=== PATIENT | female | born 1985 | race Caucasian/White ===

== ENCOUNTER → 2020-04-11 15:26 | Outpatient (BNVA) | payer OTHER, SELFPAY | PROVIDERS: Family Provider Family Medicine; PCP Family Medicine; Visit Provider Social Worker Clinical | DX: F32.2 Major depressive disorder, single episode, severe without psychotic features (principal); F41.1 Generalized anxiety disorder; T74.11XA Adult physical abuse, confirmed, initial encounter; Z63.4 Disappearance and death of family member | CPT/HCPCS: 90834 ==

== ENCOUNTER → 2020-04-19 11:50 | Outpatient (BNVA) | payer OTHER, SELFPAY | PROVIDERS: Family Provider Family Medicine; PCP Family Medicine; Visit Provider Social Worker Clinical | DX: F32.2 Major depressive disorder, single episode, severe without psychotic features (principal); F41.1 Generalized anxiety disorder; T74.11XA Adult physical abuse, confirmed, initial encounter; Z63.0 Problems in relationship with spouse or partner | CPT/HCPCS: 90834 ==

== ENCOUNTER 2021-10-14 12:42 | Outpatient (CLI) | payer OTHER, SELFPAY ==
--- NOTE | 2021-10-14 12:55 | US_ITS ---
WS: [id number] TRANSVAGINAL PELVIC ULTRASOUND HISTORY: DUB/ABNORMAL UTERINE VAGINAL BLEEDING COMPARISON: None available. Uterus: 9.5 cm x 5.7 cm x 4.8 cm. Uterus is mildly enlarged and retroverted. There is a solid mass wi th mild increased vascularity. Mass is centered along the lower endocervical segment. This is not a t ypical appearance for a fibroid. This could be a fibroid but there is no shadowing present. This mass extends into the endometrium. Mass measures 2.2 x 3.1 x 1.9 cm. Endometrium: 0.4 cm. Endometrium is being displaced along its lower segment by the mass centered at t he endocervical region. Right ovary: 2.6 cm x 1.9 cm x 3.0 cm. Normal size ovary. There is a mildly complex cyst measuring 1. 7 x 1.3 x 2.0 cm. Normal vascularity to the visualized ovary. Left ovary: 2.8 cm x 2.3 cm x 1.3 cm. Normal size ovary with a a few small follicles. No free fluid. US/US transvaginal [id number] IMPRESSION: 1. Solid mass with increased vascularity. Mass is centered along the lower end ocervical segment. This does not have a typical appearance for a fibroid. There is no shadowing. This may be a fibroid but additional etiologies such as neopl asm should be considered. Recommend follow-up with YARD DRIVER. 2. Endometrium is being distorted by the mass along the lower endocervical seg ment. This may be a submucosal mass or within the myometrium displacing the end ometrium.
== END 2021-10-14 12:43 | disposition home or self-care (01) ==
LOC: RAD 12:45
PROVIDERS: PCP Family Medicine; Visit Provider Family Medicine
DX: N93.8 Other specified abnormal uterine and vaginal bleeding (principal)
CPT/HCPCS: 76830

== ENCOUNTER → 2021-11-19 11:31 | Outpatient (BNVA) | payer OTHER, SELFPAY | PROVIDERS: PCP Family Medicine; Referring Provider Family Medicine; Visit Provider Nurse Practitioner Women's Health | DX: N93.9 Abnormal uterine and vaginal bleeding, unspecified (principal) | CPT/HCPCS: 84439; 84443; 84702; 85025; 87624 ==

== ENCOUNTER → 2022-01-02 13:35 | Outpatient (BNVA) | payer OTHER, SELFPAY | PROVIDERS: PCP Family Medicine; Visit Provider Obstetrics & Gynecology | DX: R87.610 Atypical squamous cells of undetermined significance on cytologic smear of cervix (ASC-US) (principal); R87.810 Cervical high risk human papillomavirus (HPV) DNA test positive | CPT/HCPCS: 81025; 88305 ==

== ENCOUNTER → 2022-01-19 13:38 | Outpatient (BNVA) | payer OTHER, SELFPAY | PROVIDERS: PCP Family Medicine; Visit Provider Obstetrics & Gynecology | DX: D25.0 Submucous leiomyoma of uterus (principal); Z01.812 Encounter for preprocedural laboratory examination | CPT/HCPCS: 81000; 81025 ==

== ENCOUNTER 2022-01-21 09:40 | Observation (INO) | payer OTHER, SELFPAY ==
[2022-01-16 10:56] VITALS: BMI 29.2
--- NOTE | 2022-01-16 11:18 | P.ANESASSM_ITS ---
Pre-Anesthetic Assessment Height/Weight: Height 1.75 m Weight 89.811 kg Operation Date: 01/21/22 10:35 Proposed Procedures p Total Vaginal Hysterectomy 08654/ abnormal uterine bleeding N93.9/fibroid D25.0(Not Applicable) - Justino Phan MD Familial anesthetic complications: None Was Beta Thi taken within 24 hours: N/A Was Clonidine taken within 24 hours: N/A Social No alcohol and No tobacco Exam alert, oriented x 3, clear to auscultation bilaterally and regular rate & rhythm Airway Submandibular: within normal limits Cervical ROM: within normal limits Mallampati: Class II Dentition: full History/ROS No significant history except as noted Neuropsych Anxiety and Depression Anesthetic Plan ASA status: 2 Anesthesia: General Medications/Allergies Home Medications Medication Instructions Recorded Confirmed Last Taken Type cetirizine 10 mg tablet (24Hour 10 mg PO DAILY 11/19/21 01/16/22 Unknown History Allergy) fluoxetine 40 mg capsule 40 mg PO DAILY 11/19/21 01/16/22 Unknown History medroxyprogesterone 150 mg/mL 150 mg IM 11/19/21 01/09/22 Unknown History intramuscular syringe (Depo-Provera) melatonin 3 mg capsule 3 mg PO DAILY 11/19/21 01/16/22 Unknown History sumatriptan succinate 25 mg tablet 25 mg PO Q2H PRN 11/19/21 01/16/22 Unknown History (Imitrex) Allergies Allergy/AdvReac Type Severity Reaction Status Date / Time No Known Allergies Allergy Verified 01/09/22 11:12 [facility] Anesthesia Medical History (Updated 12/09/21 @ 14:00 by Justino Phan MD) Depression Migraine with aura No pertinent past medical history neghx: htn,dm,thyroid,dvt/pe PCP: Nubia Liu Surgical History (Updated 11/19/21 @ 10:37 by Christianne Ayala APN, BROOKS) Hx of tonsillectomy (~2003) Family History Father Diabetes Hypertension Hypercholesteremia Mother Thyroid disease Hypercholesteremia Grandmother Ovarian cancer Paternal dx age---- unknown Sister No problems noted. Denies family history of Colon cancer Heart disease Breast cancer Uterine cancer Stroke Data Anesthesia : 01/16/22 11:09 01/16/22 11:09 Cardiac Studies: No Data to Display
[2022-01-16 11:20] LABS: Basophils # 0.1 10^3/uL (0.0-0.1); Basophils % 0.8 %; Eosinophils # 0.1 10^3/uL (0.0-0.8); Eosinophils % 1.6 %; Hematocrit 40.1 % (37.0-47.0); Lymphocytes # 1.5 10^3/uL (0.8-4.8); Lymphocytes % 19.4 %; Mean Corpuscular HGB Conc 32.4 g/dL (30.0-36.0); Mean Corpuscular Hemoglobin 26.2 pg (28.0-34.0); Mean Corpuscular Volume 80.7 fl (81-99); Mean Platelet Volume 9.6 fL (7.4-10.4); Monocytes # 0.5 10^3/uL (0.2-0.9); Monocytes % 6.9 %; Neutrophils # 5.45 10^3/uL (1.8-7.7); Neutrophils % 70.9 %; Nucleated Red Blood Cells % 0 %; Platelet Count 296 10^3/cmm (130-400); Red Blood Count 4.97 10^6/uL (4.1-5.3); Red Cell Distribution Width 12.6 % (12.1-15.1); White Blood Count 7.7 10^3/uL (4.0-10.0)
[2022-01-16 11:41] LABS: Anion Gap 15.6 (5-19); Blood Urea Nitrogen 9 mg/dL (6-20); Calcium 9.6 mg/dL (8.5-10.5); Carbon Dioxide 20 mmol/L (22-29); Chloride 105 mmol/L (98-107); Glomerular Filtration Rate 112.5 mL/min (90-130); Glucose 83 mg/dL (65-115); Osmolality Calculated 282 mOsm/kg (285-295); Potassium 3.6 mmol/L (3.5-5.1); Sodium 137 mmol/L (136-145)
[2022-01-21] VITALS (20 sets, daily range): BP systolic 104–127; BP diastolic 56–91; PULSE 58–93; RESP 12–20; TEMP 36.1–37.1; O2SAT 96–100
[2022-01-21 07:00] LABS: OR HCG Qualitative Urine Negative (Negative)
--- NOTE | 2022-01-21 07:19 | P.ANESUD_ITS ---
Pre-Anesthetic Update Pre-Anesthetic Assessment: Date of Surgery/Procedure: 01/21/22 Preop Denise gnosis: Abnormal uterine bleeding, pelvic pain, ASCUS Proposed Procedure: Operation Date: 01/21/22 08:25 Proposed Procedures p Total Vaginal Hysterectomy 51227/ abnormal uterine bleeding N93.9/fibroid D25.0(Not Applicable) - Justino Phan MD Any changes to Pre-Anesthetic Assessment?: No Last Intake: Intake Last Liquid Date 01/20/22 Last Liquid Time 22:00 Last Solid Date 01/20/22 Last Solid Time 22:00 Exam: Pre-Anes Outpt Exam: alert, oriented x 3, clear to auscultation bilaterally and regular rate & rhythm Cardiac Studies: No Data to Display
[2022-01-21] MEDS: scopolamine 1.5 Patch 1 PATCH TRANSDERMA (07:30)
[2022-01-21] MEDS: sodium chloride 0.9% 1,000 ML 30 ML IV (07:31)
--- NOTE | 2022-01-21 08:02 | W.PM.OPSUD ---
Surgery/Procedure H&P Update DATE OF PROCEDURE: January 21, 2022 DATE H&P PERFORMED: 01/02/22 H&P UPDATE INFORMATION: I have reviewed H&P completed within last 30 days, I have examined patient prior to procedure and No changes to prior documentation PREOP DIAGNOSIS: Abnormal uterine bleeding, pelvic pain, ASCUS PLANNED PROCEDURE: Operation Date: 01/21/22 08:25 Proposed Procedures p Total Vaginal Hysterectomy 37805/ abnormal uterine bleeding N93.9/fibroid D25.0(Not Applicable) - Justino Phan MD
[2022-01-21] MEDS: ceFOXitin 2,000 MG in sodium chloride 0.9% (plus) 50 ML 100 MG IV (08:14)
--- NOTE | 2022-01-21 09:20 | PM.OP ---
Operative Report Date of procedure: January 21, 2022 Pre-op diagnosis: Preop Diagnosis Abnormal uterine bleeding, pelvic pain, ASCUS Post-op diagnosis: Same as above Post-op findings: Enlarged uterus Procedure done: Total vaginal hysterectomy with bilateral salpingectomy Specimens removed/disposition: Uterus left and right fallopian tube Surgeon: Justino Phan MD Estimated blood loss (mL): 75 IV fluids (mL): 800 Urine output (mL): 300 Complications: None Findings: Enlarged uterus Procedure: After informed consent and risks, benefits, indications and alternatives reviewed with the patient was taken to the operating room. The patient was placed in dorsal lithotomy position prepped, and draped in the usual sterile fashion. The pre-procedure timeout verifying the correct patient, procedure, site and side, could not requirements was performed and acknowledge by the OR team. A Mcnulty catheter was placed. A Bookwalter vaginal retractor was placed into the vagina in usual manner visualize the cervix. Cervix was grasped with a single tooth tenaculum and circumferentially infiltrated with 2% lidocaine with epinephrine. Then cervix was circumferentially incised with bovie and the bladder was dissected off the pubovesical cervical fascia anteriorly with a sponge stick and Metzenbaum scissors. The anterior peritoneal reflection was identified and the anterior cul-de-sac was entered sharply with Metzenbaum scissors. The same procedure was performed posteriorly and a posterior colpotomy was made through the posterior cul-de-sac space without difficulty and the posterior blade of the Bookwalter vaginal retractor was advanced posteriorly into the cul-de-sac. At this time, the left and right uterosacral ligaments were isolated and ligated with 0 Vicryl. The Enseal device was placed over the uterosacral ligaments on either side and was then used in a serial fashion up through the cardinal ligaments bilaterally cross-clamped, cut, and sealed with the Enseal device. Finally, the uterine arteries were cross-clamped, cut, sealed and ligated with the Enseal device. Hemostasis was assured. The broad ligaments were then serially clamped, sealed and cut with the Enseal device on both sides. Excellent hemostasis was visualized. Both cornua were clamped, sealed and cut with the Enseal device. Then the pedicles were then suture ligated with excellent hemostasis. The uterus was excised and submitted for pathologic evaluation. No other abnormalities were noted in the pelvic cavity. Then the right fallopian tube was identified. The ureter was confirmed along the pelvic side wall and peristalsis was noted. The Enseal device was then used to clamp, sealed and transcepted at middistance, again being sure to be clear of the ureter and the fallopian tube was removed. The same process was then repeated on the left side. Good hemostasis was assure on both sides. The peritoneum was then closed in a pursestring fashion with 0 Vicryl suture. The vaginal cuff angles were closed with [id number] #0 Vicryl suture on both sides and transfixed with the ipsilateral cardinal and uterosacral ligaments. The remainder of the vaginal cuff was closed with #0 Vicryl in a running locked fashion. At this time, instruments were removed from the vagina at hemostasis assured. Mcnulty catheter was then noted yielding clear bishop urine. The patient was taken out of dorsal lithotomy position and awakened from the general anesthesia. The patient tolerated the procedure well and was taken to the PACU recovery room in a stable condition. Sponge, lap, needle and instruments counts were correct x3.
--- NOTE | 2022-01-21 09:29 | P.PCN_ITS ---
PACU note Narrative: VSS, Good respiratory effort, report to DIAMOND CUTTER Exam: awake
--- NOTE | 2022-01-21 09:29 | PM.PACU ---
PACU note Narrative: VSS, Good respiratory effort, report to STAFF TECHNOLOGIST Exam: awake
--- NOTE | 2022-01-21 09:37 | SUR.PHASEI ---
0929 [facility] [place].
[2022-01-21] MEDS: ondansetron 2 mg/ML SDV 2 mL 4 MG IVP ×2 (09:47→09:58)
[2022-01-21] MEDS: dextrose 5%-lactated ringers 1,000 ML 125 ML IV ×2 (10:57→19:08)
[2022-01-21] MEDS: HYDROcodone-acetaminophen 5-325 mg Tablet PO ×2 (10:58→19:08)
[2022-01-21] MEDS: ketorolac 30 mg/mL INJ IVP ×3 (10:58→22:46)
--- NOTE | 2022-01-21 17:07 | ANE.PACU2 ---
Inpatient post-anesthesia follow up: Airway intact: Yes Vital signs: Temperature 98.5 F Pulse Rate 77 Respiratory Rate 18 Blood Pressure 110/69 Pulse Oximetry 97 Oxygen Delivery Me thod Room Air Oxygen Flow Rate 6 Fraction of Inspir ed Oxygen Hydration adequate: Yes Nausea and vomiting: No Pain level: 2 Mental status: Baseline
[2022-01-21] MEDS: docusate sodium 100 mg Capsule PO (17:42)
[2022-01-22] MEDS: HYDROcodone-acetaminophen 5-325 mg Tablet PO ×2 (02:42→09:34)
[2022-01-22] MEDS: ketorolac 30 mg/mL INJ IVP (03:16)
[2022-01-22] MEDS: dextrose 5%-lactated ringers 1,000 ML 125 ML IV (03:16)
[2022-01-22 04:10] VITALS: BP 110/69; PULSE 67; TEMP 36.8; O2SAT 97
[2022-01-22 04:50] LABS: Hematocrit 33.8 % (37.0-47.0); Hemoglobin 10.9 g/dL (11.5-15.3); Mean Corpuscular HGB Conc 32.2 g/dL (30.0-36.0); Mean Corpuscular Hemoglobin 26.7 pg (28.0-34.0); Mean Corpuscular Volume 82.8 fl (81-99); Mean Platelet Volume 10.1 fL (7.4-10.4); Platelet Count 233 10^3/cmm (130-400); Red Blood Count 4.08 10^6/uL (4.1-5.3); Red Cell Distribution Width 12.6 % (12.1-15.1); White Blood Count 11.2 10^3/uL (4.0-10.0)
--- NOTE | 2022-01-22 07:27 | P.DS_ITS ---
Discharge Providers CHEMICAL LABORATORY ASSISTANT Date of Admission: 01/21/22 09:40 Date of Discharge: 01/22/22 Attending Provider at Admission: Justino Phan MD Attending Provider at Discharge: Justino Phan MD Primary Care Provider: Anitha Liu MD Diagnoses at Discharge Discharge Diagnosis (1) Status post vaginal hysterectomy: Status: Acute Reason for Visit Reason for Visit: abnormal uterine bleeding N93.9/Fibroid D25.0 Brief History: Mrs. Cheema 36-year-old female with a history of abnormal uterine bleeding unresponsive to medical management with limited choices of treatment due to her past medical history of migraines with aura and history of chronic pelvic pain. Hospital Course Hospital Course Mrs. Boston 36-year-old female with a history of abnormal uterine bleeding unresponsive to medical management and pelvic pain. Admitted for planned total vaginal hysterectomy. The total vaginal hysterectomy was performed without complication. Postop observation was uneventful. She is afebrile and hemodynamically stable postoperative day 1. Ambulating without difficulty. Tolerating diet well. Pain well under control. Physical Exam Narrative: GA: Alert and oriented ?3. HEENT: WNL. Heart: Regular rate and rhythm. Lungs: Clear to auscultation bilaterally. Abdomen: Bowel sounds present, nontender. RESOURCE ANALYST: No bleeding. Extremities: No edema, no cyanosis, no calves pain. Urinary Catheter Management: Mcnulty: Cath Placed During This Visit: yes, but has since been removed by the nurse Reason for Continuing Indwelling Catheter: Decision to DC Catheter Urinary Catheter Date of Insertion: 01/21/22 Urinary Catheter Time of Insertion: 08:36 Date Urinary Catheter Removed: 01/22/22 Time Urinary Catheter Discontinued: 04:15 History History History 2 Term 2 Miscarriages/Ectopic 0 0 Living Children 2 Discharge Data Studies Completed and Pending Pending at discharge Category Date Time Status Pathology: Surgical [PTH] Routine Pth 01/21/22 09:12 Received Laboratory Results WBC 11.2 10^3/uL (4.0-10.0) H 01/22/22 04:25 RBC 4.08 10^6/uL (4.1-5.3) L 01/22/22 04:25 Hgb 10.9 g/dL (11.5-15.3) L 01/22/22 04:25 Hct 33.8 % (37.0-47.0) L 01/22/22 04:25 MCV 82.8 fl (81-99) 01/22/22 04:25 MCH 26.7 pg (28.0-34.0) L 01/22/22 04:25 MCHC 32.2 g/dL (30.0-36.0) 01/22/22 04:25 RDW 12.6 % (12.1-15.1) 01/22/22 04:25 Plt Count 233 10^3/cmm (130-400) 01/22/22 04:25 MPV 10.1 fL (7.4-10.4) 01/22/22 04:25 Neut % (Auto) 70.9 % 01/16/22 11:09 Lymph % (Auto) 19.4 % 01/16/22 11:09 Sandoval % (Auto) 6.9 % 01/16/22 11:09 Eos % (Auto) 1.6 % 01/16/22 11:09 Baso % (Auto) 0.8 % 01/16/22 11:09 Neut # (Auto) 5.45 10^3/uL (1.8-7.7) 01/16/22 11:09 Lymph # (Auto) 1.5 10^3/uL (0.8-4.8) 01/16/22 11:09 Sandoval # (Auto) 0.5 10^3/uL (0.2-0.9) 01/16/22 11:09 Eos # (Auto) 0.1 10^3/uL (0.0-0.8) 01/16/22 11:09 Baso # (Auto) 0.1 10^3/uL (0.0-0.1) 01/16/22 11:09 Nucleated RBC % (auto) 0 % 01/16/22 11:09 Nucleated RBCs # 0.0 /100WBC 01/16/22 11:09 Sodium 137 mmol/L (136-145) 01/16/22 11:09 Potassium 3.6 mmol/L (3.5-5.1) 01/16/22 11:09 Chloride 105 mmol/L (98-107) 01/16/22 11:09 Carbon Dioxide 20 mmol/L (22-29) L 01/16/22 11:09 Anion Gap 15.6 (5-19) 01/16/22 11:09 BUN 9 mg/dL (6-20) 01/16/22 11:09 Creatinine 0.6 mg/dL (0.5-0.9) 01/16/22 11:09 GFR Calculation 112.5 mL/min (90-130) 01/16/22 11:09 Glucose 83 mg/dL (65-115) 01/16/22 11:09 Calculated Osmolality 282 mOsm/kg (285-295) L 01/16/22 11:09 Calcium 9.6 mg/dL (8.5-10.5) 01/16/22 11:09 Urine HCG, Qual Negative (Negative) 01/21/22 06:59 Blood Type A Positive 01/16/22 11:09 Rho(D) Type Positive 01/16/22 11:09 Antibody Screen Negative 01/16/22 11:09 Vitals Last Vital Signs Temp 98.2 F 01/22/22 04:10 Pulse 67 01/22/22 04:10 Resp 17 01/21/22 21:30 BP 110/69 01/22/22 04:10 Pulse Ox 97 01/22/22 04:10 Discharge Plan Discharge Patient Disposition: Home Condition: Stable Prescriptions: New hydrocodone-acetaminophen 5-325 mg tablet 1 tab PO Q4H PRN (Reason: pain) Qty: 20 0RF docusate sodium [Colace] 100 mg capsule 100 mg PO BID Qty: 60 0RF ferrous sulfate [Iron (ferrous sulfate)] 325 mg (65 mg iron) tablet 325 mg PO BID Qty: 60 0RF acetaminophen 325 mg capsule 325 mg PO Q4H PRN (Reason: fever or pain) Qty: 60 0RF ibuprofen 800 mg tablet 800 mg PO TID PRN (Reason: pain) Qty: 60 0RF Continued cetirizine [24Hour Allergy] 10 mg tablet 10 mg PO DAILY 0RF fluoxetine 40 mg capsule 40 mg PO DAILY 0RF melatonin 3 mg capsule 3 mg PO DAILY 0RF sumatriptan succinate [Imitrex] 25 mg tablet 25 mg PO Q2H PRN (Reason: Headache) 0RF Rx Instructions: do not exceed 8 doses per 24 hrs Discontinued medroxyprogesterone [Depo-Provera] 150 mg/mL syringe 150 mg IM DIRECTED 0RF Discharge Orders: Discharge Order (Routine); Ordered 01/22/22 Ordered By: Justino Phan Referrals: Justino Phan MD [Physician] - 2 weeks Discharge Diet: Advance as tolerated and Usual diet Discharge Activity: Limit activity as instructed Patient Instructions: Opioid Safety, Vaginal Hysterectomy (GEN) Activity Restrictions/Additional Instructions: 1. Please call [facility] on next working day to make your post-operative appointment in 2 weeks. 2. Please stay home until you come back to the clinic on first post-operative check up. 3. Please follow instructions on your medications CAREFULLY. 4. If you have abdominal incision, do not cover it unless dressing is necessary because of drainage. OK to shower, but avoid bath. Leave steri-strips until they fall off. If they are still on one week after surgery, you may remove them. 5. If you had vaginal surgery or vaginal repair, Dr. Phan may instruct you to take SITZ bath. 6. Yellow, blood tinged odorous vaginal discharge is usually normal after hysterectomy or vaginal surgeries. 7. No sexual intercourse, tampons, or douches until you are completely released from the post-operative care. 8. Avoid constipation by eating right and maybe using some Metamucil or Milk of Magnesia. 9. All prescription refills are given during the working hours. Please do no wait till it runs out. Call the clinic at [phone] before your medication runs out. The clinic will get in touch with your doctor to prescribe medications if necessary. 10. Please remain within 40 mile radius from our hospital because emergencies do happen now and then during the post-operative period. 11. If you have stairs at home, take one step at a time slowly and minimize the number of trips. It helps to stay in one floor for the next few days. No lifting except what you can lift by one hand until you are released from the post-operative care. 12. Driving is discouraged until you are well healed. It may be 3-4 weeks before you feel strong enough to drive. You should be able to turn and look through the rear window without pain and you should be able to push the brake pedal very hard without pain before you drive. No fast rules, but SAFETY should be your primary concern. DO NOT drive if you are on sedating medications such as narcotics. 13. Call the clinic (during working hours) to make urgent appointment or go to the Emergency room, if any of the following occurs: i. Vaginal bleeding becomes heavy, more than a period. ii. Incision becomes red and sore, or drains pus. iii. Your temperature is over 100.4 or you have chill. iv. IV site becomes red and swollen (a little ``knot?? is usually OK) v. Persistent nausea and vomiting vi. Persistent constipation or diarrhea vii. Rash or allergic reaction to medications. Discharge Attestations CHEMICAL LABORATORY ASSISTANT Time Spent in Discharge Care*: greater than 30 min Specific Discharge Activities: Specific discharge activities: educating patient Status at Discharge: Cognitive status at discharge: cognitively intact , Behavioral status at discharge: cooperative , Overall status at discharge: patient is back to baseline Coding Level of Care Code Acute Fish Bin Tender for Thuy Harding Diagnoses Status post vaginal hysterectomy Z90.710
[2022-01-22] MEDS: cetirizine 10 mg Tablet PO (08:32)
[2022-01-22] MEDS: docusate sodium 100 mg Capsule PO (08:34)
[2022-01-22] MEDS: fluoxetine 20 mg Capsule 40 MG PO (08:34)
[2022-01-22] MEDS: ibuprofen 800 mg tablet PO (09:03)
[2022-01-22 09:16] VITALS: BP 116/70; PULSE 99; RESP 15; TEMP 36.5; O2SAT 98
[2022-01-22 09:17] VITALS: BP 116/71; PULSE 99; RESP 15; TEMP 36.5; O2SAT 98
== END 2022-01-22 09:39 | disposition home or self-care (01) ==
LOC: OBGYN 09:43
PROVIDERS: Anesthesiology; Admitting Provider Obstetrics & Gynecology; PCP Family Medicine; Visit Provider Obstetrics & Gynecology
PROC: (CPT 58262; principal; 2022-01-21 08:15)
DX: N93.9 Abnormal uterine and vaginal bleeding, unspecified (principal); D25.0 Submucous leiomyoma of uterus; R87.610 Atypical squamous cells of undetermined significance on cytologic smear of cervix (ASC-US); R87.810 Cervical high risk human papillomavirus (HPV) DNA test positive
CPT/HCPCS: 58262; 36415; 80048; 81025; 84703; 85025; 85027; 86850; 86900; 88307; G0378; J0694; J1100; J1200; J1885; J2405; J2704; J2710; J3010; J3490; J7030; Q9968

== ENCOUNTER → 2023-10-07 15:51 | Outpatient (BNVA) | payer BC, SELFPAY | PROVIDERS: PCP Family Medicine; Referring Provider Physician Assistant; Visit Provider Nurse Practitioner | DX: S52.561A Barton's fracture of right radius, initial encounter for closed fracture; W19.XXXA Unspecified fall, initial encounter | CPT/HCPCS: 73110 ==

== ENCOUNTER 2023-10-07 16:14 | Outpatient (CLI) | payer BC, SELFPAY | END 2023-10-07 16:15 | disposition home or self-care (01) | LOC: SPT 16:15 | PROVIDERS: PCP Family Medicine; Visit Provider Nurse Practitioner | DX: Z46.89 Encounter for fitting and adjustment of other specified devices (principal); S52.591D Other fractures of lower end of right radius, subsequent encounter for closed fracture with routine healing; X58.XXXD Exposure to other specified factors, subsequent encounter | CPT/HCPCS: 97760; L3982 ==

== ENCOUNTER → 2023-11-08 10:37 | Outpatient (BNVA) | payer BC, SELFPAY | PROVIDERS: PCP Family Medicine; Visit Provider Nurse Practitioner | DX: S52.561A Barton's fracture of right radius, initial encounter for closed fracture (principal); W19.XXXA Unspecified fall, initial encounter | CPT/HCPCS: 73110 ==

== ENCOUNTER → 2023-12-06 09:28 | Outpatient (BNVA) | payer BC, SELFPAY | PROVIDERS: PCP Family Medicine; Visit Provider Nurse Practitioner | DX: S52.561A Barton's fracture of right radius, initial encounter for closed fracture (principal); W19.XXXA Unspecified fall, initial encounter | CPT/HCPCS: 73110 ==

== ENCOUNTER 2024-12-28 11:39 | Outpatient (CLI) | payer BC, SELFPAY ==
--- NOTE | 2024-12-28 11:40 | MM_ITS ---
WS: [id number] Bilateral screening 3D tomosynthesis digital mammogram, 12/28/2024 11:44 AM Clinical Data: SCREENING Comparison: None. Findings: No spiculated masses or clustered calcifications are seen. There are no secondary signs of carcinoma. MM/MM scr BI tomosynthesis [id number] Impression: Negative bilateral mammogram with no prior exam for review. Recommend annual screening mammograms. BIRADS: 1 - Negative FOLLOW UP: 1 Year Follow-up DENSITY: The breasts are heterogeneously dense, which may obscure small masses. The CAD stock checker was used
== END 2024-12-28 11:40 | disposition home or self-care (01) ==
PROVIDERS: PCP Family Medicine; Visit Provider Family Medicine
DX: Z12.31 Encounter for screening mammogram for malignant neoplasm of breast (principal); R92.333 Mammographic heterogeneous density, bilateral breasts
CPT/HCPCS: 77063; 77067